=== PATIENT | female | born 1950 | race Caucasian/White ===

== ENCOUNTER → 2016-10-17 07:49 | Outpatient (CLI) | payer MEDICARE, BC ==
[2011-05-09 10:21] VITALS: BMI 37.0
[2016-10-17 08:32] LABS: INR 0.98 (0.85-1.17); PROTIME 12.9 SECONDS (11.6-15.0)
[2016-10-17 08:49] LABS: ALBUMIN 3.6 g/dL (3.4-5.0); ALKALINE PHOSPHATASE 70 U/L (46-116); ALT (SGPT) 40 U/L (10-68); CALC OSMOLALITY 280 mosm/kg (275-300); CALCIUM 9.1 mg/dL (8.5-10.1); CARBON DIOXIDE 30.6 mmol/L (21.0-32.0); CHLORIDE - SERUM 103 mmol/L (98-107); CREATININE - SERUM 0.8 mg/dL (0.6-1.3); GLUCOSE 107 mg/dL (74-106); POTASSIUM - SERUM 4.3 mmol/L (3.5-5.1); SODIUM 140 mmol/L (136-145); TRIGLYCERIDE 114 mg/dL (30-200); UREA NITROGEN 18 mg/dL (7-18); eGFR NON AFRICAN AMERICAN 76 mL/min (90-120)
== END | disposition home or self-care (01) ==
LOC: D.RAD 07:49 → D.US 08:30
PROVIDERS: Internal Medicine Gastroenterology
DX: K59.00 Constipation, unspecified (principal); E78.5 Hyperlipidemia, unspecified; R10.13 Epigastric pain; R10.32 Left lower quadrant pain

== ENCOUNTER 2016-11-29 11:04 | Outpatient (CLI) | payer MEDICARE, BC ==
[~2016-11-29] VITALS: Ht 165.1 cm; Wt 117.3 kg
--- NOTE | ~2016-11-29 | HEMODYNAMI ---
PATIENT:MARIZOL GEIGER MEDICAL RECORD: [id number] : 48 LOCATION:[facility] ADMISSION DATE: 11/29/16 Generatedon:11/29/201613:02 Patient name: MARIZOL GEIGER Patient #: [id number] : 1950 Date of study: 11/29/2016 Page: Of Hemodynamic Procedure Report Patient Data Patient Demographics Procedure consent was obtained First Name: MARIZOL Gender: Female Last Name: JUANJO : 1950 Middle Initial: CIARAN Age: 66 year(s) Patient #: [id number] Race: SSN: [id number] Additional ID: [id number] Contact details [address]: [address] [place] [address] State: [place] City: [place] Zip code: [address] Past Medical History Allergies Allergen Reaction Date Comments Reported Other allergy 11/29/2016 augmentin, epinephrine Admission Admission Data Admission Date: 11/29/2016 Admission Time: 11:04 Arrival Date: 11/29/2016 Arrival Time: 13:00 Admit Source: Other Insurance Payor: Medicare Height (in.): 65 BSA: 2.19 (m2) Height (cm.): 165.1 BMI: 42.27 (kg/m2) Weight (lbs.): 254 Weight (kg.): 115.21 Lab Results Lab Result Date: 11/29/2016 Lab Result Time: 0:00 Biochemistry Name Units Result Min Max BUN mg/dl 19 --(----)*- 7 18 Creatinine mg/dl 0.9 --(-*--)-- 0.6 1.3 CBC Name Units Result Min Max Hemoglobin g/dl 13.5 --(*---)-- 13.5 17.5 Procedure Procedure Types Cath Procedure Diagnostic Procedure LHC LHC w/Coronaries Miscellaneous Procedures Moderate Sedation up to 30 minutes Peripheral Cath Diagnostic Procedure Cath Peripheral Four Vessel Arteriogram Procedure Description Procedure Date Procedure Date: 11/29/2016 Procedure Start Time: 12:48 Procedure End Time: 13:00 Procedure Staff Name Function Bharat Real MD Performing Physician Georgette Choe RT Scrub Yamel Rooney RN Nurse Libertad Ramirez RT Monitor Procedure Data Cath Procedure Fluoroscopy Diagnostic fluoroscopy Total fluoroscopy Time: 2.4 time: 2.4 min min Diagnostic fluoroscopy Total fluoroscopy dose: dose: 289.52 mGy 289.52 mGy Contrast Material Contrast Material Type Amount (ml) Isovue 370 80 Entry Location Entry Primary Successful Side Size Upsize Upsize Entry Closure Succes sful Closure Location (Fr) 1 (Fr) 2 (Fr) Remarks Device Remarks Femoral Right 5 Fr Exoseal artery Estimated blood loss: 5 ml Diagnostic catheters Device Type Used For End Catheter Placement Medtronic Dexterity 5Fr Left Coronary JL 4.0 catheter (NO Angiography CHARGE) Cordis 5Fr 3DRC Catheter Right Coronary (MP) Angiography Medtronic Dexterity 5Fr LV Angiography Pigtail catheter (NO CHARGE) Procedure Complications No complications Procedure Medications Medication Administration Route Dosage Oxygen NC 2 l/min Lidocaine 2% added to field 20 Heparin Flush Bag added to field 2 bags (1000units/500ml NS) 0.9% NaCl I.V. 100 ml/hr Versed I.V. 1 mg Fentanyl I.V. 50 mcg Versed I.V. 1 mg Fentanyl I.V. 50 mcg Versed I.V. 1 mg Fentanyl I.V. 50 mcg Versed I.V. 1 mg Fentanyl I.V. 50 mcg Hemodynamics Rest BSA: 2.19 (m2) HGB: 13.5 (g/dl) O2 Consumption: Estimated: 202.45 (ml/min) O2 Co nsumption indexed: Estimated:92.44 (ml/min/m) Heart Rate: 69 (bpm) Pressure Samples Time Site Value (mmHg) Purpose Heart Use Rate(bpm) 12:56 LV 144/18,141 Snapshot 127 Gradients Valve Time Site Site Mean SEP/DFP Peak To Heart Use 1 2 (mmHg) (sec/min) Peak Rate (mmHg) (bpm) Aortic 12:57 LV AO 109 Snapshots Pre Cath Intra NCS Post Cath Vital Signs Time Heart Resp SPO2 NIBP (mmHg) Rhythm Pain Sedation Rate (ipm) (%) Status Level (bpm) 12:29:36 66 18 96 137/76(106) NSR 0 (11) 10(A) , No pain 12:33:55 73 18 95 111/96(101) NSR 0 (11) 10(A) , No pain 12:38:02 73 27 93 120/95(113) NSR 0 (11) 10(A) , No pain 12:42:20 74 15 97 120/73(93) NSR 0 (11) 10(A) , No pain 12:46:36 67 21 96 129/78(100) NSR 0 (11) 10(A) , No pain 12:50:50 72 19 95 125/69(103) NSR 0 (11) 9(A) , No pain 12:55:09 106 18 97 131/79(124) NSR 0 (11) 9(A) , No pain 12:59:29 79 25 97 136/80(100) NSR 0 (11) 10(A) , No pain Medications Time Medication Route Dose Verified Delivered Reason Notes Effe ctiveness by by 12:40:44 Oxygen NC 2 Bharat Buffie used for l/min 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 100 Bharat Buffie Per ml/hr [facility]. Bertram Rooney RN physician 12:43:05 Fentanyl I.V. [address] m[address] Bertram Rooney RN sedation 12:43:59 Versed I.V. 1 mg B[address]at Buffie for [facility] Bertram Rooney RN sedation 12:48:09 Versed I.V. 1 mg Bharat Buffie for [facility] Bertram Rooney RN sedation 12:48:13 Fentanyl I.V. 50 [address]har[address] Buff[address] m[address] [facility] Bertram Rooney RN sedation 12:54:07 Versed I.V. 1 mg Bharat Buffie for [facility] Bertram Rooney RN sedation 12:54:11 Fentanyl I.V. [address] m[address] Bertram Rooney RN sedation 12:58:15 Versed I.V. 1 mg Bharat Buffie for Farhan Rooney RN sedation 12:58:20 Fentanyl I.V. 50 Bharat Montesinos for [facility] Rooney RN sedation Procedure Log Time Note 12:10:13 Informed consent obtained and on chart 12:10:39 Admit Source: Other 12:10:50 Arrival Date: 11/29/2016 1:00:00 PM 12:10:58 Insurance Payor : Medicare 12:11:03 Patient Height : 165.1 cm 12:11:07 Patient Weight : 115.21 kg 12:14:55 Lab Result : Hemoglobin 13.5 g/dl 12:14:55 Lab Result : Creatinine 0.9 mg/dl 12:14:55 Lab Result : BUN 19 mg/dl 12:15:04 Diagnostic Cath Status : Elective 12:16:00 Yamel Rooney RN sent for patient. Start room use. 12:16:01 Time tracking: Regular hours 12:16:05 Plan of Care:Hemodynamics will remain stable., Cardiac rhythm will remain stable., Comfort level will be maintained., Respiratory function will remain adequate., Patient/ family verbilizes understanding of procedure., Procedure tolerated without complication., Recovers from procedure without complications.. 12:28:15 Patient received from Pre/Post Procedure Room to CCL 3 Alert and oriented. Tansferred to table in Supine position. 12:28:16 Warm blankets applied, and hugh hugger turned on for patient comfort. 12:28:17 Correct patient and procedure confirmed by team. 12:28:17 ECG and BP/O2 sat monitors applied to patient. 12:28:19 Baseline sample Acquired. 12:28:19 Vital chart was started 12:28:22 Rhythm: sinus rhythm 12:28:23 Full Disclosure recording started 12:28:40 H&P Date Dictated: 11/15/2016 Within 30 days and on chart., H&P Addendum completed by physician on day of procedure. (MUST COMPLETE FOR ALL OUTPATIENTS). 12:28:41 Pre-procedure instructions explained to patient. 12:28:42 Pre-op teaching completed and patient verbalized understanding. 12:28:43 Family in waiting room. 12:28:44 Patient NPO since Midnight. 12:29:32 Patient allergic to Other allergyaugmentin, epinephrine 12:29:38 Is the patient allergic to Iodine/contrast media? No. 12:29:41 Was the patient premedicated? No 12:29:44 Is patient on blood thinner?No 12:30:10 ACC The patient was administered the following blood thiners within the last 24 hours: None 12:30:22 Patient diabetic? No. 12:30:25 Previous problem with sedation/anesthesia? No ? 12:30:27 Snore? No 12:30:28 Sleep apnea? No 12:30:29 Deviated septum? No 12:30:31 Opens mouth fully? Yes 12:30:33 Sticks out tongue? Yes 12:30:36 Airway obstruction? No ? 12:30:41 Dentures? Yes out 12:30:45 Pre procedure: right dorsailis pedis pulse 1+ Palpable, but thready & weak; easily obliterated 12:30:54 Patient pain scale 0/10 0. 12:31:34 IV patent on arrival in right forearm with 0.9% NaCl at [facility]. 12:31:38 Lab results completed and on chart. 12:31:43 Right groin area was prepped with chlora-prep and draped in sterile fashion 12::44 Alarms reviewed by R. N. 12:31:45 Sharps counted by scrub and verified by R.N. 12:35:40 Zero performed for pressure channel P1 12:36:04 Zero performed for pressure channel P1 12:40:44 Oxygen 2 l/min NC was administered by Yamel Rooney RN; used for procedure; 12:40:52 Lidocaine 2% 20ml vial added to field was administered by Bharat Real MD; for local anesthetic; 12:41:01 Heparin Flush Bag (1000units/500ml NS) 2 bags added to field was administered by Bharat Real MD; used for procedure; 12:41:13 0.9% NaCl 100 ml/hr I.V. was administered by Yamel Rooney RN; Per physician; 12:41:27 Merit 18G 9cm Percutaneous Entry needle opened to sterile field. 12::41 Physician arrived 12:41:42 --------ALL STOP TIME OUT------ 12::42 Final Timeout: patient, procedure, and site verified with staff and physician. All members of the team are in agreement. 12:41:44 Right groin site verified by team. 12:41:47 Physical assessment completed. ASA score P 2 - A patient with mild systemic disease as per Bharat Real MD. 12:41:50 Sedation plan: IV Moderate Sedation Versed, Fentanyl 12:42:03 Use device set Femoral Dx 12:42:04 Acist Syringe opened to sterile field. 12:42:04 Bag Decanter opened to sterile field. 12:42:05 Medline Cath Pack opened to sterile field. 12:42:05 Terumo 5Fr [place] Sheath opened to sterile field. 12:42:06 St Federico 260cm J .035 wire opened to sterile field. 12:42:07 Acist Hand Control opened to sterile field. 12:42:08 Acist Manifold opened to sterile field. 12:42:12 Tegaderm 4 x 4 opened to sterile field. 12:43:05 Fentanyl 50 mcg I.V. was administered by Yamel Rooney RN; for sedation; 12:43:59 Versed 1 mg I.V. was administered by Yamel Rooney RN; for sedation; 12:48:07 Procedure started. 12:48:09 Versed 1 mg I.V. was administered by Yamel Rooney RN; for sedation; 12:48:13 Fentanyl 50 mcg I.V. was administered by Yamel Rooney RN; for sedation; 12:48:17 Local anesthetic to right femoral artery with Lidocaine 2% by Bharat Real MD.INITIAL ACCESS ONLY 12:48:43 A 5 Fr sheath was inserted into the Right Femoral artery 12:49:08 A Monumental Gameserity 5Fr JL 4.0 catheter (NO CHARGE) was advanced over the wire and used for Left Coronary Angiography. 12:50:14 LCA angiography performed. 12:50:18 Injector settings: Ml/sec: 3, Volume: 6, 12:51:58 Catheter removed. 12:52:11 A uParts 5Fr 3DRC Catheter () was advanced over the wire and used for Right Coronary Angiography. 12:52:43 RCA angiography performed. 12:52:45 Injector settings: Ml/sec: 3, Volume: 6, 12:54:07 Versed 1 mg I.V. was administered by Yamel Rooney RN; for sedation; 12:54:11 Fentanyl 50 mcg I.V. was administered by Yamel Rooney RN; for sedation; 12:54:18 Bilateral carotid angiography performed. 12:55:11 Catheter removed. 12:55:17 A Medtronic Dexterity 5Fr Pigtail catheter (NO CHARGE) was advanced over the wire and used for LV Angiography. 12:56:53 LV gram done using RUBALCAVA 12:56:55 Injector settings: Ml/sec: 5, Volume: 15, 12:57:00 EF : 50 % 12:57:40 Catheter removed. 12:58:05 Cordis 6Fr Exoseal opened to sterile field. 12:58:15 Versed 1 mg I.V. was administered by Yamel Rooney RN; for sedation; 12:58:20 Fentanyl 50 mcg I.V. was administered by Yamel Rooney RN; for sedation; 12:58:53 Sheath removed intact; hemostasis achieved with Exoseal to the Right Femoral artery. 12:58:57 Procedure ended.(Physican Out) 12:59:02 Fluoroscopy time 02.40 minutes. 12:59:09 Fluoroscopy dose: 289.52 mGy 12:59:09 Flurop Dose total: 289.52 12:59:13 Contrast amount:Isovue 370 80ml. 12:59:14 Sharps counted by scrub and verified by R.N. 12:59:15 Insertion/operative site no bleeding no hematoma. 12:59:18 Post-op/insertion site Right Femoral artery dressed using a 4 x 4 and Tegaderm. 12:59:21 Post right femoral artery:stable 12:59:22 Post Procedure Pulses reassessed and unchanged 12:59:25 Post procedure rhythm: unchanged. 12:59:27 Estimated blood loss: 5 ml 12:59:29 Post procedure instruction explained to patient.Patient verbalizes understanding. 12:59:29 Patient needs reinforcement of post procedure teaching. 12:59:47 Procedure type changed to Cath procedure, Diagnostic procedure, LHC, LHC w/Coronaries, Miscellaneous Procedures, Moderate Sedation up to 30 minutes, Peripheral Cath Diagnostic Procedure, Cath Peripheral, Four Vessel Arteriogram 13:00:32 Procedure and supply charges have been captured, reviewed, submitted and are correct. 13:00:39 Procedure Complication : No complications 13:00:42 Vital chart was stopped 13:00:42 See physician's report for complete and final results. 13:00:52 Report given to Pre/Post Procedure Room. 13:00:55 Patient transfered to Pre/Post Procedure Room with Stretcher. 13:00:57 Procedure ended. 13:00:57 Full Disclosure recording stopped 13:01:02 End room use (Document Last) Device Usage Item Name Manufacture Quantity Catalog Hospital Part Current Minimal Lot# / Number Charge Number Stock Stock Serial# Code Merit 18G Merit 1 [id number] [id number] 110830 5 9cm Medical Percutaneous Entry needle Acist Acist 1 29514 934620 063763 304118 20 Syringe [employer] Inc Bag Decanter Microtek 1 2002S 658161 55828 077284 5 Medical Inc. Medline Cath Cardinal 1 [id number] 155653 98181 570010 5 Pack Health Terumo 5Fr Terumo 1 [id number] [id number] 382416 227788 [address] St Federico 1 036595 135368 527168 773124 30 260cm J .035 wire Acist Hand Acist 1 30413 242730 091003 363625 5 Control Medical [employer] Inc Acist Acist 1 19773 012348 540709 258753 5 Manifold Medical Systems Inc Tegaderm 4 x 3M 1 1626W 442828 471411 336690 5 4 Medtronic Medtronic 1 [id number] 341656 459731 5 Dexterity 5Fr JL 4.0 catheter (NO CHARGE) Cordis 5Fr Cardinal 1 [id number] 5 3DRC Health Catheter (MP) Medtronic Medtronic 1 [id number] 034161 466123 5 Dexterity 5Fr Pigtail catheter (NO CHARGE) Cordis 6Fr Cardinal 1 EX600 154686 889682 541928 10 [facility] Setup Signature Audit [place] Stage Time Signature Unsigned Intra-Procedure 11/29/2016 Libertad Ramirez 1:02:29 PM RT(R) Signatures Monitor : Libertad Ramirez RT Signature : Date : Time : [place] [id number] [place] [address]
[2016-11-29] MEDS ORDERED: CELEXA20 MG PO (11:27)
[2016-11-29] MEDS ORDERED: ULTRAM50 MG PO (11:28)
[2016-11-29] MEDS ORDERED: MOBIC7.5 MG PO (11:29)
[2016-11-29] MEDS ORDERED: VASOTEC20 MG PO (11:29)
[2016-11-29] MEDS ORDERED: NEXIUM40 MG PO (11:29)
[2016-11-29] MEDS ORDERED: NITROQUICK0.4 MG SL (11:31)
[2016-11-29] MEDS ORDERED: SUPER B COMPLE150 MG PO (11:31)
[2016-11-29 11:41] VITALS: BP 134/66; Ht 165.1 cm; Wt 117.3 kg
[2016-11-29 11:43] LABS: BASOPHILS 0.2 % (0-2); EOSINOPHILS 2.6 % (0-7); HEMATOCRIT 41.6 % (36.0-48.0); HEMOGLOBIN 13.5 g/dL (12-16); IMMATURE GRANULOCYTES 0.2 % (0-5); LYMPHOCYTES 33.3 % (15-50); MCH 30.5 pg (26.0-34.0); MCHC 32.5 g/dL (31.0-37.0); MCV 93.9 fL (80.0-100.0); NEUTROPHILS 54.7 % (40-80); PLATELET COUNT 213 10x3/uL (130-400); RBC 4.43 10x6/uL (4.00-5.40); RDW 12.9 % (11.5-14.5)
[2016-11-29 12:00] LABS: ANION GAP 8.5 mmol/L (8-16); CALCIUM 9.3 mg/dL (8.5-10.1); CARBON DIOXIDE 30.8 mmol/L (21.0-32.0); CREATININE - SERUM 0.9 mg/dL (0.6-1.3); POTASSIUM - SERUM 4.3 mmol/L (3.5-5.1)
--- NOTE | 2016-11-29 13:29 | NUR ---
1315 RECIEVED BACK TO ROOM VIA STRETCHER FROM BLOCK CHOPPER HAND WITH VSS. PATIENT DENIED CHEST PAIN AT THIS TIME 5 FR EXOSEAL R/GROIN CDI NO BLEEDING NO HEMATOMA NOTED. INSTRUCTED PATIENT TO KEEP HEAD FLAT ON PILLOW WITH RLE STRAIGHT
--- NOTE | 2016-11-29 13:46 | NUR ---
CHEST PAIN DENIED WITH NO DISTRESS NOTED SANDWICH AND SODA TO BEDSIDE WITH FAMILY TO ASSIST. 5 FR EXOSEAL R/GROIN CDI NO BLEEDING NO HEMATOMA NOTED.
--- NOTE | 2016-11-29 14:15 | NUR ---
1415 VSS WITH NO CHANGE IN ASSESSMENT R/GROIN CDI. FAMILY AT SIDE
--- NOTE | 2016-11-29 14:45 | NUR ---
1445 RESTING QUIETLY WITH NO DISTRESS. R/GROIN CDI NO BLEEDING NO HEMATOMA NOTED WILL MONITOR
--- NOTE | 2016-11-29 15:12 | NUR ---
PIV REMOVED WITH DRESSING APPLIED. PATIENT UP TO GET DRESSED FOR DISCHARGE HOME FAMILY AT SIDE 5 FR EXOSEAL R/GROIN CDI NO BLEEDING NO HEMATOMA NOTED.
--- NOTE | 2016-11-29 15:34 | NUR ---
VERBAL AND WRITTEN DISCHARGE GONE OVER WITH PATIENT AND SISTER. BOTH VERBALIZED UNDERSTANDING. 5 FR EXOSEAL R/GROIN CDI NO BLEEDING NO HEMATOMA NOTED. CHEST PAIN IS DENIED. PATIENT TRANSPORTED VIA WC TO PARKING FOR FAMILY TO DRIVE HOME
--- NOTE | 2016-11-30 08:26 | OP ---
PATIENT NAME: MARIZOL GEIGER MEDICAL RECORD: [id number] :48 LOCATION:[facility] ADMISSION DATE: SURGEON: ETHAN MONTES MD DATE OF OPERATION: 11/29/2016 PROCEDURES: Four-vessel arteriography using right femoral approach. First, the right common carotid was cannulated selectively. FINDINGS: 1. Right common carotid shows minimal wall disease, but no stenosis greater than 10%. 2. Left internal carotid, mild wall disease, no stenosis greater than 10%. 3. Right external carotid, mild wall disease, nothing greater than 10%. LEFT SYSTEM: Left common carotids were selectively engaged. Findings are as follows: 1. Left common carotid, smooth vessel, free of disease. 2. Left internal carotid, minimal wall disease. No stenosis greater than 10%. 3. Left external carotid appears normal. IMPRESSION: Minimal atherosclerotic disease of the carotid system. TRANSINT:[id number] Voice Confirmation ID: [id number] DOCUMENT ID: [id number] ETHAN MONTES MD at 0826 CC: [id number] DICTATION DATE: 11/29/16 1302 SULFUR CHLORIDE OPERATOR: 11/29/162056 DEP CLI 11/29/16 [place] [id number] [place] [id number]
--- NOTE | 2016-11-30 08:26 | OP ---
PATIENT NAME: MARIZOL GEIGER MEDICAL RECORD: [id number] :48 LOCATION:D.CAT ADMISSION DATE: SURGEON: ETHAN MONTES MD DATE OF OPERATION: 11/29/2016 PROCEDURES: Left heart catheterization, selective coronary angiography, right femoral artery approach. CATHETERS: A 5-Andorran sheath, 5/4 left and right Luisa, 5/4 pig. The procedure was well tolerated and the patient returned to [place]. Sheath removed. ExoSeal device placed. FINDINGS: Left ventriculography in the 30-degree RUBALCAVA view: Normal wall motion, normal systolic function. CORONARY ANATOMY: LEFT MAIN: Left main is free of disease. LAD: Free of disease in the diagonal system. CIRCUMFLEX: Free of disease in the marginal system. RIGHT CORONARY ARTERY: Dominant artery, gives rise to PDA, free of disease. IMPRESSION: Normal systolic function. Normal coronary anatomy. TRANSINT:[id number] Voice Confirmation ID: [id number] DOCUMENT ID: [id number] ETHAN MONTES MD at 0826 CC: [id number] DICTATION DATE: 11/29/16 1303 AVIATION ORDNANCE OFFICER: 11/29/16 2334 DEP CLI 11/29/16 [place] [id number] [place] [address]
== END 2016-11-29 15:36 | disposition home or self-care (01) ==
LOC: D.CATH 11:04
PROVIDERS: Internal Medicine Interventional Cardiology
DX: I20.9 Angina pectoris, unspecified (principal); I10 Essential (primary) hypertension; R94.31 Abnormal electrocardiogram [ECG] [EKG]; R06.02 Shortness of breath; R07.9 Chest pain, unspecified; Z01.812 Encounter for preprocedural laboratory examination